=== PATIENT | female | born 1975 | race Two or more races ===

== ENCOUNTER → 2024-07-18 | Outpatient (CLI) | payer OTHER | END | disposition home or self-care (01) | LOC: NUCLEAR 14:08 | PROVIDERS: ATTEND Internal Medicine Hematology & Oncology | DX: I70.213 Atherosclerosis of native arteries of extremities with intermittent claudication, bilateral legs (principal) ==

== ENCOUNTER → 2024-07-19 07:18 | Outpatient (CLI) | payer OTHER ==
[2024-07-19 08:45] LABS: INR 0.96; PARTIAL THROMBOPLASTIN TIME 24.6 SECONDS (22.0-34.0); PROTHROMBIN TIME 10.5 SECONDS (9.0-11.5)
[2024-07-19 08:53] LABS: HEMATOCRIT 32.7 % (34.1-44.9); HEMOGLOBIN 10.1 g/dL (11.2-15.7); LYMPH # 0.39 (1.18-3.74); LYMPH % 10.5 % (19.3-53.1); MEAN CORPUSCULAR HEMOGLOBIN 21.4 pg (25.6-32.2); MONO # 0.03 (0.24-0.82); MONO % 0.8 % (4.7-12.5); NEUT % 88.4 % (34.0-71.1); PLATELET COUNT 260 K/uL (163-369); RED BLOOD COUNT 4.71 M/uL (3.93-5.22); RED CELL DISTRIBUTION WIDTH 20.6 % (11.6-14.4)
[2024-07-19 08:56] LABS: % SATURACION 4.5 % (15-50); ALBUMIN 3.6 gm/dL (3.4-5.0); BILIRUBIN TOTAL 0.38 mg/dL (0.3-1.2); CALCIUM 8.9 mg/dL (8.5-10.1); CREATININE SERUM 0.66 mg/dL (0.55-1.02); GFR 95.59; GLOBULINA 3.7 G/DL (2.4-3.5); POTASSIUM 4.14 mEq/L (3.5-5.1); TOTAL PROTEIN 7.3 gm/dL (6.4-8.2)
[2024-07-19 08:57] LABS: FERRITIN 5.7 NG/ML (8-252)
[2024-07-19 09:38] LABS: COL EPI 130 SECONDS (82-175)
[2024-07-19 12:06] LABS: FOLIC ACID 14.24 ng/ml (4.78-20)
[2024-07-21 13:08] LABS: HOMOCYSTEINE < 3.0 umol/L (0.0-14.5); hgb a 97.9 % (96.4-98.8); hgb a2 2.1 % (1.8-3.2); hgb f 0 % (0.0-2.0); hgb s 0 % (0.0)
== END | disposition home or self-care (01) ==
LOC: LAB 07:18
PROVIDERS: ATTEND Internal Medicine Hematology & Oncology
DX: D68.61 Antiphospholipid syndrome (principal); D50.0 Iron deficiency anemia secondary to blood loss (chronic); D72.19 Other eosinophilia; D51.3 Other dietary vitamin B12 deficiency anemia; I67.89 Other cerebrovascular disease; D50.8 Other iron deficiency anemias; I10 Essential (primary) hypertension; R74.02 Elevation of levels of lactic acid dehydrogenase [LDH]; K76.89 Other specified diseases of liver; D63.8 Anemia in other chronic diseases classified elsewhere; D55.0 Anemia due to glucose-6-phosphate dehydrogenase [G6PD] deficiency; D68.8 Other specified coagulation defects; D69.1 Qualitative platelet defects

== ENCOUNTER 2024-07-19 08:21 | Outpatient (CLI) | payer OTHER | END 2024-07-19 08:22 | disposition home or self-care (01) | LOC: NUCLEAR 08:21 | PROVIDERS: ATTEND Internal Medicine Hematology & Oncology | DX: I67.89 Other cerebrovascular disease (principal); I87.2 Venous insufficiency (chronic) (peripheral) ==

== ENCOUNTER 2024-07-19 12:45 | Outpatient (CLI) | payer OTHER | END 2024-07-19 12:50 | disposition home or self-care (01) | LOC: MRI 12:45 | PROVIDERS: ATTEND Internal Medicine Hematology & Oncology | DX: D68.61 Antiphospholipid syndrome (principal); D50.0 Iron deficiency anemia secondary to blood loss (chronic); D72.19 Other eosinophilia; D51.3 Other dietary vitamin B12 deficiency anemia; I67.89 Other cerebrovascular disease; L97.528 Non-pressure chronic ulcer of other part of left foot with other specified severity | CPT/HCPCS: 73723; Q9965; 73721 ==